=== PATIENT | male | born 1945 | race Hispanic/Latino ===

== ENCOUNTER 2016-12-26 12:01 | Day surgery (SDC) | payer MEDICARE ==
[2016-12-26] MEDS ORDERED: NACL 0.9% 1000 ML 1,000 ML IV SCH (13:00)
[2016-12-26] MEDS ORDERED: DIPRIVAN 10 MG/ML IV ONE ×3 (13:33→14:43)
--- NOTE | 2016-12-26 13:33 | Anesthesia Consultation ---
Anesthesia Consult and Med Hx Date of service: 12/26/16 - Airway Anesthetic Teeth Evaluation: Good, Partials (lower) ROM Head & Neck: Adequate Mental/Hyoid Distance: Adequate Mallampati Class: Class II Intubation Access Assessment: Probably Good - Pulmonary Exam CTA: Yes - Cardiac Exam Cardiac Exam: RRR - Pre-Operative Health Status ASA Pre-Surgery Classification: ASA3 Proposed Anesthetic Plan: MAC - Pulmonary Hx Smoking: No Hx Asthma: No Hx Sleep Apnea: No - Cardiovascular System Hx Hypertension: Yes Hx Coronary Artery Disease: Yes Hx Angina: No Hx Percutaneous Transluminal Coronary Angioplasty (PTCA): Yes (stents x 2, recent balloon angioplasty in 12/2013) - Central Nervous System Hx Seizures: No CVA: No Hx Psychiatric Problems: No - Gastrointestinal Hx Gastroesophageal Reflux Disease: Yes (on meds) - Endocrine Hx Renal Disease: No Hx Non-Insulin Dependent Diabetes: Yes (diet controlled) - Hematic Hx Anemia: Yes (myelodysplastic syndrome) - Other Systems Hx Cancer: No - Additional Comments Anesthesia Medical History Comments: bypass x2
--- NOTE | 2016-12-26 13:34 | Anesthesia Day of Surgery ---
Anesthesia Day of Surgery - Day of Surgery Patient Examined: Yes Patient H&P Reviewed: Yes Patient is NPO: Yes
[2016-12-26] MEDS ORDERED: WATER FOR IRRIG STERILE IR ONE (14:08)
[2016-12-26 14:48] VITALS: BP 100/42
--- NOTE | 2016-12-26 15:02 | Post Anesthesia Evaluation ---
- Post Anesthesia Evaluation Patient Participated: Yes Airway Patent: Yes Stable Respiratory Function: Yes Nausea/Vomiting: No Temp > 96.8F: Yes Pain Manageable: Yes Adequeate Hydration: Yes Anesthesia Complications: No
--- NOTE | 2017-01-03 11:08 | Operative Report ---
Operative Report Operative Report: Date of procedure: 12/26/2016 Pre-op diagnosis: Screening colonoscopy Post-op diagnosis: Normal colonoscopy to cecum Surgeon: Dyllan Polo MD Findings: See post-op diagnosis Anesthesia: MAC There were no complications, cultures or specimens. Description of procedure: Pt was placed in a left sided down position. He was sedated intravenously by anesthesia. The colonoscope was inserted into the pt' s rectum. The scope was advanced retrograde with direct visualization of the colonic lumen. The prep was adequate. Once the cecum was identified, the scope was slowly withdrawn with careful circumferential visualization of the colonic mucosa. The examination included a retroflexed view of the distal rectum. No polyps, tumors, diverticula, AVM's or mucosal ulcerations were noted. Insufflated air was aspirated from the pt's rectum and the scope removed. Pt tolerated the procedure well.
== END 2016-12-26 12:02 | disposition home or self-care (01) ==
LOC: GIO 12:01
PROVIDERS: ATTEND Surgery
DX: Z12.11 Encounter for screening for malignant neoplasm of colon (principal); I10 Essential (primary) hypertension; I25.10 Atherosclerotic heart disease of native coronary artery without angina pectoris; K21.9 Gastro-esophageal reflux disease without esophagitis; E11.9 Type 2 diabetes mellitus without complications; D46.9 Myelodysplastic syndrome, unspecified; Z95.5 Presence of coronary angioplasty implant and graft; Z95.1 Presence of aortocoronary bypass graft; Z79.899 Other long term (current) drug therapy; Z79.82 Long term (current) use of aspirin; Z79.84 Long term (current) use of oral hypoglycemic drugs; Z79.01 Long term (current) use of anticoagulants
CPT/HCPCS: 82962; G0121; J2704